=== PATIENT | female | born 1990 | race Caucasian/White ===

== ENCOUNTER → 2020-12-27 | Outpatient (CLI) | payer OTHER, SELFPAY ==
[2020-12-27 15:29] LABS: Absolute Lymphocyte Count 0.85 X10^3/uL (0.83-4.51); Absolute Neutrophil Count 2.3 X10^3/uL (2.0-7.7); Basophil# 0.01 X10^3/uL; Basophil% 0.3 % (0-1); Eosinophil# 0.01 X10^3/uL; Eosinophils% 0.3 % (0-5); Hematocrit 49.6 % (37-47); Hemoglobin 15.9 g/dL (12.0-15.0); Lymphocyte # 0.85 X10^3/ul (0.83-4.51); Lymphocyte % 22.1 % (19-41); Mean Corp Hgb Conc 32.1 g/dL (32-36); Mean Corpuscular Hgb 25.7 pg (27.0-32.0); Mean Corpuscular Volume 80.3 fL (81-99); Mean Platelet Vol. 9.5 fl (6.2-12.0); Monocyte# 0.65 X10^3/uL; Monocyte% 16.9 % (0-10); NRBC Flagged by Analyzer 0 % (0-5); Neutrophil # 2.32 X10^3/uL (2.7-7.7); Neutrophil % 60.1 % (47-70); Platelet Count 193 K/mm3 (150-450); RBC Distribution Width CV 13.5 % (11.6-14.6); RBC Distribution Width SD 39.3 fl (35.1-43.9); Red Blood Count 6.18 M/mm3 (4.2-5.4); White Blood Count 3.9 K/mm3 (4.4-11.0)
[2020-12-27 15:51] LABS: AST(SGOT) 48 U/L (15-37); Alanine Aminotransfer ALT/SGPT 77 U/L (13-56); Albumin, Serum 3.7 g/dL (3.2-5.0); Alkaline Phosphatase 114 U/L (45-117); Anion Gap 5 (5-15); BUN 7 mg/dL (7-18); Calcium,Total 9.3 mg/dL (8.5-10.1); Chloride 102 mmol/L (98-107); Creatinine, Serum 0.78 mg/dL (0.55-1.02); EST Glomerular Filtration Rate 91 mL/min (>60); Est Glom Filt Rate - Afr Amer 111 mL/min (>60); Globulin 3.8 g/dL (2.2-4.2); Glucose 93 mg/dL (74-106); Potassium 3.3 mmol/L (3.5-5.1); Protein, Total 7.5 g/dL (6.4-8.2); Sodium Level 136 mmol/L (136-145)
== END | disposition home or self-care (01) ==
LOC: LABSPEC 15:18
PROVIDERS: Referring Provider Nurse Practitioner Family; Visit Provider Nurse Practitioner Family
DX: R11.2 Nausea with vomiting, unspecified (principal)
CPT/HCPCS: 80053; 85025

== ENCOUNTER 2023-10-11 13:52 | Emergency (ER) | payer OTHER, SELFPAY ==
[2023-10-11 13:54] VITALS: BP 192/117; PULSE 114; RESP 18; TEMP 36.6; O2SAT 99
--- NOTE | 2023-10-11 15:54 | EKG12_ITS ---
Test Reason : HYPERTENSION Blood Pressure : / mmHG Vent. Rate : 098 BPM Atrial Rate : 098 BPM P-R Int : 158 ms QRS Dur : 074 ms QT Int : 358 ms P-R-T Axes : 054 042 044 degrees QTc Int : 457 ms Normal sinus rhythm Normal ECG Confirmed by BINTA SHEIKH, SAFIA ([id number]), editorial director DAVIN THOMAS ([id number]) on 10/18/2023 9:52:21 AM Referred By: Confirmed By:EDEN JUDD MD
--- NOTE | 2023-10-11 15:54 | CT_ITS ---
EXAM: CT HEAD WITHOUT INTRAVENOUS CONTRAST CLINICAL INDICATION: Dizziness TECHNIQUE: Multiple axial images were obtained of the head without intravenous contrast. This CT exam was performed using one or more of the following dose reduction techniques: automated exposure control, adjustment of the mA and/or kV according to patient size, and/or use of iterative reconstruction technique. COMPARISON: No relevant prior studies available. FINDINGS: BRAIN AND EXTRA-AXIAL SPACES: Unremarkable. No intra- or extra-axial hemorrhage. No evidence of acute infarct. No intracranial mass or mass effect. There is preservation of the lala/white matter interface. Posterior fossa structures are unremarkable. Ventricles are appropriate for age. No hydrocephalus. Basal cisterns are patent. BONES/JOINTS: Unremarkable. No discrete lytic or blastic abnormalities. SINUSES: Unremarkable as visualized. Clear. MASTOID AIR CELLS: Unremarkable. Clear. ORBITS: Visualized globes, extraocular muscles, optic nerves and retrobulbar fat appear unremarkable. CT/Brain/Head without Contrast IMPRESSION: Negative head/brain CT without intravenous contrast. Electronically Signed: Adelso Max MD at 17:04 EST ,
--- NOTE | 2023-10-11 15:56 | EX.ED.DYSGE1 ---
HPI History of Present Illness Chief Complaint: Hypertension Narrative Narrative: 32-year-old female past medical history of liver transplant presents with dizziness and elevated blood pressure that she has had since yesterday. States yesterday when she was scrolling on her phone she felt very dizzy and lightheaded like the room was spinning. She had to put her phone down and look away and close her eyes and rest. She denies any chest pain or shortness of breath. She noticed today that her blood pressure has been elevating. While her systolic blood pressure was 154, the diastolic is going up as well. She states she feels less dizzy than before. But as her blood pressure kept rising. They drove her here to the emergency department. She states she tried to call the liver transplant team but they did not answer. PFSH PFS Home Medications amlodipine 2.5 mg tablet 2.5 mg PO DAILY #20 tabs 10/11/23 [Rx Last Taken Unknown] Allergy/AdvReac Type Severity Reaction Status Date / Time No Known Allergies Allergy Verified 10/11/23 13:53 Social History Smoking Status: Never smoker ROS ROS ED ROS Narrative Constitutional: No fever, no chills. Elevated blood pressure. HEENT: No sore throat. No neck pain. No loss of vision. No rhinorrhea. Cardiovascular: No chest pain. No palpitations. No pedal edema. Respiratory: No cough, no shortness of breath. Abdominal: No abdominal pain. No nausea. No vomiting. Genitourinary: No dysuria. No hematuria. Musculoskeletal: No myalgias. No arthralgias. Neurologic: No headaches. Positive dizziness and lightheadedness Skin: No rash. No change in color. Psychiatric: No depression. No anxiety. EXAM Physical Exam Narrative Exam Narrative: Afebrile. Vital signs noted. HEENT: Normocephalic. Atraumatic. PERRL, EOMI. Neck soft and supple. No point tenderness or step off. Cardiovascular: Positive tachycardia. No murmurs, rubs, or gallops appreciated. Respiratory: No tachypnea. Lungs clear to auscultation bilaterally. Gastrointestinal: Abdomen soft, nontender, with normoactive bowel sounds. No rebound or guarding. Neurological: Awake. Alert. Nonfocal, nonlateralizing. DTRs equal and symmetric. Skin: No rash. Normal color. No pallor. Musculoskeletal: No pedal edema. Full range of motion extremities. Const Vital Signs: 10/11/23 13:54 10/11/23 15:53 10/11/23 17:00 Temperature 97.9 F Temperature Source Temporal Pulse Rate 114 H 101 H Respiratory Rate 18 22 H Respiratory Pattern Normal Blood Pressure 192/117 H 165/98 H Blood Pressure Mean 142 120 Pulse Ox 99 Oxygen Delivery Method Room Air MDM MDM MDM Narrative Medical decision making narrative: In triage she has severely elevated blood pressure of 192/117. Given her history of transplant, basic laboratories will be obtained, and as she is dizzy, I do feel that EKG and CT of the brain need to be obtained to rule out hypertensive bleed. She was placed on a online trader and her blood pressure rechecked. I did order 5 mg of hydralazine intravenously. However, her repeat blood pressure was 165/98. It was as low as the 140s systolic. I reviewed her laboratory work and she has normal white count of 10.7, hemoglobin 15.6 and slightly hemoconcentrated but it has been in the past. Platelet count normal at 240. CMP shows glucose appropriately elevated at 102 with sodium normal at 139, potassium 3.2 which was replaced orally with 40 mill equivalents. AST is normal at 29, ALT normal at 44, alk phos slightly elevated at 148 which I think is nonspecific. Serum is negative. Urinalysis is negative for infection on review. I discussed the patient with Adela, on the transplant team at the [facility]. She states that she has discussed this with the surgeon, and is okay to start her on antihypertensive medications. She was written a prescription for amlodipine 2.5 mg to start tomorrow, #20 but should follow-up with her primary care physician as well. Also, they recommended follow-up with the post senior marketing coordinator because she is supposed to have repeat laboratory work this coming . I do feel she can be discharged safely home with follow-up. There may be some anxiety component to this. Additionally, transplant team stated that she has history of rejection, but I see no acute signs of rejection currently as she is not having abdominal pain as well and her LFTs are grossly unremarkable. Return instructions to the emergency department were reviewed. Disposition is discharged home in stable condition. History & Record Review Discussion w/independent historian: Patient Additional record(s) reviewed:: Prior labs Lab Data Attestation: I reviewed the patient's lab results. Labs: Laboratory Results - last 24 hr 10/11/23 10/11/23 16:00 16:35 WBC 10.7 RBC 6.13 H Hgb 15.6 H Hct 49.4 H MCV 80.6 L MCH 25.4 L MCHC 31.6 L RDW Std Deviation 39.0 RDW Coeff of Geovanna 13.5 Plt Count 240 MPV 9.3 Immature Gran % (Auto) 0.300 Neut % (Auto) 73.3 H Lymph % (Auto) 20.9 [place] % (Auto) 4.5 Eos % (Auto) 0.8 Baso % (Auto) 0.2 Absolute Neuts (auto) 7.9 H Absolute Lymphs (auto) 2.24 Nucleated RBC % 0 Sodium 139 Potassium 3.2 L Chloride 107 Carbon Dioxide 27.0 Anion Gap 5 BUN 12 Creatinine 0.85 Est GFR (MDRD) Af Amer 98 Est GFR (MDRD) Non-Af 81 BUN/Creatinine Ratio 14.1 Glucose 102 Calcium 9.6 Total Bilirubin 0.50 AST 29 ALT 44 Alkaline Phosphatase 148 H Troponin I High Sens 4 Total Protein 7.7 Albumin 4.0 Globulin 3.7 Albumin/Globulin Ratio 1.1 Serum , Qual NEGATIVE Urine Color Yellow Urine Clarity Clear Urine pH 6.0 Ur Specific [place] 1.015 Urine Protein 100 H Urine Glucose (UA) Normal Urine Ketones Negative Urine Occult Blood 25 H Urine Nitrite Negative Urine Bilirubin Negative Urine Urobilinogen Normal Ur Leukocyte Esterase Negative Urine RBC 0-5 SEEN Urine WBC 0 SEEN Ur Squamous Epith Cells 0 SEEN Urine Bacteria 0 SEEN Urine Mucus 0 SEEN Radiography Diagnostic Testing: Clinical Impression(s) from Imaging Studies Brain CT 10/11/23 15:54 IMPRESSION: Negative head/brain CT without intravenous contrast. Electronically Signed: Adelso Max MD at 17:04 EST , Management Discussion w/another healthcare provider: Assistant Infant Teacher ([facility] transplant team) Discharge Plan Triage Chief Complaint: Hypertension ED Provider: Reodica,Lico Dx/Rx/DC Orders Clinical Impression: History of liver transplant, Hypertension Instructions: ED Hypertension New Begin Treatment Prescriptions: New amlodipine 2.5 mg tablet 2.5 mg PO DAILY Qty: 20 0RF Primary Care Provider: Les Garcia Referrals: Les Garcia, [Primary Care Provider] - As soon as possible Activity Restrictions/Additional Instructions: Follow-up with your post senior marketing coordinator. You are supposed to have labs drawn on . Start amlodipine 2.5 mg daily, starting tomorrow. Keep a log of your blood pressure for your transplant doctor. Disposition Disposition: Home, Self Care
[2023-10-11 16:14] LABS: Absolute Lymphocyte Count 2.24 X10^3/uL (0.83-4.51); Absolute Neutrophil Count 7.9 X10^3/uL (2.0-7.7); Basophil# 0.02 X10^3/uL; Basophil% 0.2 % (0-1); Eosinophil# 0.09 X10^3/uL; Eosinophils% 0.8 % (0-5); Hematocrit 49.4 % (37-47); Hemoglobin 15.6 g/dL (12.0-15.0); Lymphocyte # 2.24 X10^3/ul (0.83-4.51); Lymphocyte % 20.9 % (19-41); Mean Corp Hgb Conc 31.6 g/dL (32-36); Mean Corpuscular Hgb 25.4 pg (27.0-32.0); Mean Corpuscular Volume 80.6 fL (81-99); Mean Platelet Vol. 9.3 fl (6.2-12.0); Monocyte# 0.48 X10^3/uL; Monocyte% 4.5 % (0-10); NRBC Flagged by Analyzer 0 % (0-5); Neutrophil # 7.87 X10^3/uL (2.7-7.7); Neutrophil % 73.3 % (47-70); Platelet Count 240 K/mm3 (150-450); RBC Distribution Width CV 13.5 % (11.6-14.6); Red Blood Count 6.13 M/mm3 (4.2-5.4); White Blood Count 10.7 K/mm3 (4.4-11.0)
--- NOTE | 2023-10-11 16:15 | NURSING ---
NO OLD EKGS
[2023-10-11 16:30] LABS: ALB/GLOB Ratio 1.1 RATIO (0.9-2.4); AST(SGOT) 29 U/L (15-37); Alanine Aminotransfer ALT/SGPT 44 U/L (13-56); Alkaline Phosphatase 148 U/L (45-117); Anion Gap 5 (5-15); BUN 12 mg/dL (7-18); BUN/Creat Ratio 14.1 RATIO (10-20); Calcium,Total 9.6 mg/dL (8.5-10.1); Chloride 107 mmol/L (98-107); Creatinine, Serum 0.85 mg/dL (0.55-1.02); EST Glomerular Filtration Rate 81 mL/min (>60); Est Glom Filt Rate - Afr Amer 98 mL/min (>60); Globulin 3.7 g/dL (2.2-4.2); Glucose 102 mg/dL (74-106); Potassium 3.2 mmol/L (3.5-5.1); Protein, Total 7.7 g/dL (6.4-8.2); Sodium Level 139 mmol/L (136-145); Troponin-I HS 4 pg/mL (3.0-54.0)
[2023-10-11 16:40] LABS: Bacteria 0 SEEN /hpf (None Seen); Mucous, Urine 0 SEEN /hpf (<or=2+); Squamous Epithelial Cells - UA 0 SEEN /hpf (5-10); White Blood Cells 0 SEEN /hpf (0-5)
[2023-10-11 16:53] LABS: Internal QC Validated? YES +Cl - CLEAR BKGD; Pregnancy, Serum, hCG Quali. NEGATIVE Negative
[2023-10-11 16:56] LABS: Color, Urine Yellow (Yellow); Glucose, Dipstick Normal (Normal); Ketone-Dipstick Negative (Negative); Leukocyte Esterase-Dipstick Negative /ul (Negative); Nitrite-Dipstick Negative (Negative); Occult Blood-Urine 25 /ul (Negative); Protein-Dipstick 100 mg/dl (Negative); Specific Gravity, Urine 1.015 (1.002-1.030); Urine Bilirubin Dipstick Negative (Negative); Urine Clarity Clear (Clear); Urine Urobilinogen Normal (Normal)
[2023-10-11 17:00] VITALS: BP 165/98; PULSE 101; RESP 22
[2023-10-11 17:13] LABS: Red Blood Cells-Urine 0-5 SEEN /hpf (0-5)
--- NOTE | 2023-10-11 17:21 | NURSING ---
CALLED [facility] FOR THE LIVER TRANSPLANT TEAM. LEFT A MESSAGE.
[2023-10-11] MEDS: Potassium Chloride Oral Tablet 20 MEQ 40 MEQ PO (17:24)
[2023-10-11] MEDS: hydrALAZINE 20 MG/ML Vial 5 MG IV (17:24)
[2023-10-11 18:28] VITALS: BP 150/86; PULSE 95; RESP 16; TEMP 36.7; O2SAT 97
== END 2023-10-11 18:29 | disposition home or self-care (01) ==
PROVIDERS: Emergency Provider Emergency Medicine; PCP Student in an Organized Health Care Education/Training Program; Visit Provider Emergency Medicine
DX: I10 Essential (primary) hypertension (principal); Z94.4 Liver transplant status; R42 Dizziness and giddiness
CPT/HCPCS: 70450; 80053; 81001; 84484; 84703; 85025; 93005; 96374; 99284; A4216